=== PATIENT | male | born 1980 | race Caucasian/White ===

== ENCOUNTER 2020-08-16 14:12 | Emergency (ER) | payer MEDICARE ==
[~2020-08-16] VITALS: Ht 182.9 cm; Wt 95.5 kg
[~2020-08-16 14:12] MED LIST: HYDROCODON-ACET15 ML PO; PHENERGAN25 M1 PO; PREVACID30 MG PO; RIZATRIPTAN5 M1 PO; VALIUM5 MG PO
[2020-08-16 14:25] VITALS: BP 131/92; Ht 182.9 cm; Wt 95.5 kg
[2020-08-16] MEDS ORDERED: NORVASC5 MG PO (14:27)
[2020-08-16] MEDS ORDERED: PAXIL20 MG PO (14:28)
[2020-08-16] MEDS ORDERED: OMEPRAZOLE20 M1 PO (14:28)
== END 2020-08-16 16:05 | disposition home or self-care (01) ==
LOC: D.ER 14:12
DX: S61.211A Laceration without foreign body of left index finger without damage to nail, initial encounter (principal); I10 Essential (primary) hypertension; K21.9 Gastro-esophageal reflux disease without esophagitis; W20.8XXA Other cause of strike by thrown, projected or falling object, initial encounter; Y93.9 Activity, unspecified; Y92.9 Unspecified place or not applicable

== ENCOUNTER 2020-09-16 13:12 | Emergency (ER) | payer MEDICARE ==
[~2020-09-16] VITALS: Ht 185.4 cm; Wt 92.3 kg
[~2020-09-16 13:12] MED LIST changes: +NORVASC5 MG PO; +OMEPRAZOLE20 M1 PO; +PAXIL20 MG PO
[2020-09-16 13:30] VITALS: BP 122/80; Ht 185.4 cm; Wt 92.3 kg
[2020-09-16] MEDS ORDERED: FLUTICASONE PRO16 GM NASAL (14:42)
[2020-09-16] MEDS ORDERED: CLARITIN 10 MG10 MG PO (14:42)
== END 2020-09-16 15:03 | disposition home or self-care (01) ==
LOC: D.ER 13:12
DX: J30.9 Allergic rhinitis, unspecified (principal); J30.2 Other seasonal allergic rhinitis; I10 Essential (primary) hypertension; R51.9 Headache, unspecified

== ENCOUNTER 2020-10-16 05:40 | Observation (INO) | payer MEDICARE ==
[2020-10-14 09:48] LABS: BASOPHILS 1.2 % (0-2); EOSINOPHILS 2.2 % (0-7); HEMATOCRIT 47.4 % (42.0-54.0); HEMOGLOBIN 16.4 g/dL (13.5-17.5); LYMPHOCYTES 24.9 % (15-50); MCH 29.1 pg (26.0-34.0); MCHC 34.6 g/dL (31.0-37.0); MCV 83.9 fL (80.0-100.0); MEAN PLATELET VOLUME 8.4 fL (7.4-10.4); MONOCYTES 7.4 % (2-11); NEUTROPHILS 64.3 % (40-80); PLATELET COUNT 205 10x3/uL (130-400); RBC 5.66 10x6/uL (4.20-6.10); RDW 13.1 % (11.5-14.5); WBC 8.3 10x3/uL (4.8-10.8)
[2020-10-14 09:56] LABS: CALC OSMOLALITY 278 mosm/kg (275-300); CALCIUM 9.3 mg/dL (8.5-10.1); CARBON DIOXIDE 26.8 mmol/L (21.0-32.0); CHLORIDE - SERUM 103 mmol/L (98-107); GLUCOSE 108 mg/dL (74-106); POTASSIUM - SERUM 4.2 mmol/L (3.5-5.1); SODIUM 138 mmol/L (136-145); UREA NITROGEN 19 mg/dL (7-18); eGFR NON AFRICAN AMERICAN 88 mL/min (90-120)
[~2020-10-16] VITALS: Ht 185.4 cm; Wt 88.6 kg
[~2020-10-16 05:40] MED LIST changes: +CLARITIN 10 MG10 MG PO; +FLUTICASONE PRO16 GM NASAL; +MAXALT10 MG; +PHENERGAN25 M1; +VENTOLIN HFA [SP8 GM; +ZOFRAN4 MG
[2020-10-16] MEDS ORDERED: BUSPAR 15 MG TA15 MG PO (06:39)
[2020-10-16 07:04] VITALS: BP 125/94; BMI 25.7
--- NOTE | 2020-10-16 11:09 | NUR ---
OPA IN AIRWAY ON ADMIT
--- NOTE | 2020-10-16 15:17 | NUR ---
1350 - BLOOD PRESSURE ELEVATED BUT PATIENT HAVING ANXIETY AND PAIN. MEDICATED HIM WITH TYLENOL #3 ONE PO TO RELIEVE PAIN AND HELP REDUCE BP.
--- NOTE | 2020-10-16 15:19 | NUR ---
1515 - PATIENT UP TO BATHROOM TO TRY TO VOID. WAS SUCCESSFUL TO VOID A FEW DROPS SO WE DECIDED TO GET HIM UP TO SEE IF BEING UP WOULD HELP WITH VOIDING.
--- NOTE | 2020-10-16 16:04 | NUR ---
1600 - REPORT CALLED TO RICARDO ON MED/SURG. PATIENT BELONGINGS PACKED AND TRANSFERRED WITH PATIENT TO ROOM 2239 VIA WHEELCHAIR.
[2020-10-16 17:18] LABS: BASOPHILS 0.3 % (0-2); EOSINOPHILS 0 % (0-7); HEMATOCRIT 44.2 % (42.0-54.0); HEMOGLOBIN 15.3 g/dL (13.5-17.5); LYMPHOCYTES 4.5 % (15-50); MCH 28.8 pg (26.0-34.0); MCHC 34.5 g/dL (31.0-37.0); MCV 83.4 fL (80.0-100.0); MEAN PLATELET VOLUME 8.2 fL (7.4-10.4); MONOCYTES 2.2 % (2-11); PLATELET COUNT 193 10x3/uL (130-400); RDW 13.1 % (11.5-14.5); WBC 13.3 10x3/uL (4.8-10.8)
[2020-10-16 17:26] VITALS: BP 127/85; Ht 185.4 cm; Wt 88.6 kg
[2020-10-16 17:37] LABS: ALBUMIN 3.9 g/dL (3.4-5.0); ALKALINE PHOSPHATASE 57 U/L (30-120); ALT (SGPT) 85 U/L (10-68); BILIRUBIN - TOTAL 0.42 mg/dL (0.2-1.3); CALC OSMOLALITY 283 mosm/kg (275-300); CALCIUM 8.7 mg/dL (8.5-10.1); CARBON DIOXIDE 27.8 mmol/L (21.0-32.0); CHLORIDE - SERUM 103 mmol/L (98-107); CREATININE - SERUM 1.1 mg/dL (0.6-1.3); GLUCOSE 132 mg/dL (74-106); MAGNESIUM - SERUM 1.9 mg/dL (1.8-2.4); PHOSPHOROUS 2.3 mg/dL (2.5-4.9); POTASSIUM - SERUM 4.7 mmol/L (3.5-5.1); PROTEIN - SERUM 7.6 g/dL (6.4-8.2); SODIUM 141 mmol/L (136-145); UREA NITROGEN 15 mg/dL (7-18); eGFR NON AFRICAN AMERICAN 79 mL/min (90-120)
[2020-10-16 17:49] VITALS: BP 127/85
--- NOTE | 2020-10-16 19:30 | NUR ---
A&O X 4. PT VOIDING. RREPORTING SHOULDER PAIN, DENIES ADEQUATE PAIN RELIEF FROM TYLENOL3. ENCOURAGED AMBULATION. PT WALKING LAPS AROUND UNIT INDEPENDENTLY, CPOC.
[2020-10-16 20:00] VITALS: BP 144/69
--- NOTE | 2020-10-16 22:00 | NUR ---
PT AMBULATING IN KERN AGAIN, CPOC.
[2020-10-17] VITALS: BP 135/84
--- NOTE | 2020-10-17 02:30 | NUR ---
IV TO RIGHT WRIST OUT, CATH INTACT. 20G SITED TO RIGHT FOREARM, 1ST ATTEMPT, PATENT. REPORTING SOME RELIEF FROM ROAD ADVISOR AND [place]. CPOC.
--- NOTE | 2020-10-17 03:12 | NUR ---
REPORTS PASSING OF A LITTLE BIT OF GAS, BUT RATING SHOULDER/ABDOMINAL PAIN AT 10/10. REPORTS ALLERGY TO MORPHINE, DR SEYMOUR PAGED.
[2020-10-17 04:00] VITALS: BP 136/88
[2020-10-17 09:20] VITALS: BP 122/80
--- NOTE | 2020-10-17 10:44 | NUR ---
ASSESSMENT PER FLOW SHEET. PATIENT IS WITHOUT DISTRESS. STILL COMPLAINS OF PAIN TO ABDOMEN. INSTRUCTED PATIENT THAT IT IS GAS PAIN. PATIENT HAS DEENA UP IN ROOM,BUT HAS NOT AMB THIS AM.MONITOR FOR NEEDS
[2020-10-17 11:32] VITALS: BP 123/84
--- NOTE | 2020-10-17 12:13 | NUR ---
IV DCD WITH CATH TIP INTACT. DISCHARGE INSTRUCTIOS,STATES UNDERSTANDING.WAITING ON RIDE FOR TRANSPORT HOME.
--- NOTE | 2020-10-17 13:07 | NUR ---
LEFT UNIT VIA WHEELCHAIR FOR TRANSPORT HOME
--- NOTE | 2020-10-20 18:04 | MORECARE ---
CASE MANAGEMENT DISCHARGE SUMMARY PATIENT: YAMINI YANEZ UNIT: [id number] ADM DATE: 10/16/20 AGE: 39 : 80 SEX: M ROOM/BED: D.2239 AUTHOR: BECKY,DOC PHYSICIAN: REFERRING PHYSICIAN: CT SCRUGGS MD DATE OF SERVICE: 10/20/20 Case Management Discharge Planning Summary DCP REVIEW SUMMARY ANTICIPATED D/C DATE: EXPECTED LOS : CASE STATUS: DCP Not started INITIAL REVIEW: 10/16/2020 INITIAL REVIEWER: Sofie Reddy FINAL DISCHARGE DISPOSITION: : FINAL REVIEWER: FINAL REVIEW DATE: DCP Focus Questions & Answers QUESTION: ANSWER : PATIENT: YAMINI YANEZ ENCOUNTER: [id number] MEDICAL RECORD#: [id number] ADMISSION DATE: 10/16/2020 DISCHARGE DATE: 10/17/2020 ATTENDING MD: LYRIC: AGE: 39 MARITAL STATUS: M DC PLAN ID: [id number] FACILITY: [facility] PRINTED ON: 10/20/20 18:04 CT All edits/amendments must be made on the electronic document DICTATION DATE: 10/20/201803 [employer] BUSINESS SEGMENT LEADER: DM 10/20/201803 RPT#: [id number] DC DATE:10/17/20 STATUS: DIS IN [facility] [address] [place] [address] END OF REPORT
== END 2020-10-17 13:08 | disposition home or self-care (01) ==
LOC: D.OPS 05:40 → D.MS 16:03 → D.OPS 20:12 → D.MS 20:13 → OBSVTIME 20:13 → D.MS 20:13
PROVIDERS: Anesthesiology; ADMIT Surgery; ATTEND Surgery
DX: K44.9 Diaphragmatic hernia without obstruction or gangrene (principal); K25.9 Gastric ulcer, unspecified as acute or chronic, without hemorrhage or perforation; K21.9 Gastro-esophageal reflux disease without esophagitis; K22.2 Esophageal obstruction

== ENCOUNTER 2020-10-20 13:11 | Inpatient (IN) | payer MEDICARE ==
[~2020-10-20] VITALS: Ht 185.4 cm; Wt 87.5 kg
[~2020-10-20 13:11] MED LIST changes: +BUSPAR 15 MG TA15 MG PO
[2020-10-20 14:09] LABS: BASOPHILS 0.2 % (0-2); EOSINOPHILS 0.3 % (0-7); HEMATOCRIT 42.7 % (42.0-54.0); HEMOGLOBIN 14.7 g/dL (13.5-17.5); LYMPHOCYTES 5.3 % (15-50); MCH 28.6 pg (26.0-34.0); MCHC 34.4 g/dL (31.0-37.0); MCV 83.2 fL (80.0-100.0); MEAN PLATELET VOLUME 8.1 fL (7.4-10.4); MONOCYTES 6.4 % (2-11); NEUTROPHILS 87.8 % (40-80); PLATELET COUNT 203 10x3/uL (130-400); RBC 5.14 10x6/uL (4.20-6.10); RDW 12.7 % (11.5-14.5); WBC 15.9 10x3/uL (4.8-10.8)
[2020-10-20 14:19] LABS: BACTERIA FEW HPF (<MOD); BILIRUBIN NEGATIVE (NEGATIVE); KETONE 3+ mg/dL (< 1+); NITRITE NEGATIVE (NEGATIVE); PH 6.5 (5.0-8.0); SQUAMOUS EPITHELIAL <1 HPF (0-4); UROBILINOGEN NORMAL mg/dL (< 2); WHITE CELLS - URINE 3 HPF (0-1)
[2020-10-20 14:24] LABS: CALC OSMOLALITY 281 mosm/kg (275-300); CALCIUM 9.1 mg/dL (8.5-10.1); CARBON DIOXIDE 25.4 mmol/L (21.0-32.0); CHLORIDE - SERUM 104 mmol/L (98-107); CREATININE - SERUM 0.9 mg/dL (0.6-1.3); GLUCOSE 125 mg/dL (74-106); POTASSIUM - SERUM 4.1 mmol/L (3.5-5.1); SODIUM 140 mmol/L (136-145); UREA NITROGEN 17 mg/dL (7-18); eGFR NON AFRICAN AMERICAN > 90 mL/min (90-120)
[2020-10-20 14:28] LABS: UDS - AMPHET NEGATIVE QUAL (NEGATIVE); UDS - BARB NEGATIVE QUAL (NEGATIVE); UDS - BENZO POSITIVE QUAL (NEGATIVE); UDS - COCAINE NEGATIVE QUAL (NEGATIVE); UDS - OPIATE POSITIVE QUAL (NEGATIVE); UDS - PCP NEGATIVE QUAL (NEGATIVE); UDS - THC POSITIVE QUAL (NEGATIVE)
[2020-10-20 14:29] LABS: ALBUMIN 3.6 g/dL (3.4-5.0); ALKALINE PHOSPHATASE 73 U/L (30-120); ALT (SGPT) 47 U/L (10-68); BILIRUBIN - TOTAL 0.65 mg/dL (0.2-1.3); MAGNESIUM - SERUM 2.3 mg/dL (1.8-2.4); PROTEIN - SERUM 7.7 g/dL (6.4-8.2)
[2020-10-20 14:39] LABS: ALCOHOL - BLOOD (MEDICAL) < 3.0 mg/dL (0.0-10.0)
[2020-10-20 14:51] VITALS: BP 122/84
[2020-10-20 16:02] VITALS: BP 119/68
--- NOTE | 2020-10-20 20:18 | NUR ---
RECEIVED TO ROOM. ALERT ORIENTED. RESP UNALBORED. 4 LAP SITE DRESSINGS INTACT TO ABD INTACT WITHOUT DRAINAGE NOTED. IV TO LAC INTACT WIHTOUT REDNESS OR EDEMA NOTED. CL IN REACH
[2020-10-20 22:28] VITALS: BMI 25.5
[2020-10-21 05:57] LABS: BASOPHILS 0.3 % (0-2); EOSINOPHILS 2.7 % (0-7); HEMATOCRIT 38.3 % (42.0-54.0); HEMOGLOBIN 13.2 g/dL (13.5-17.5); LYMPHOCYTES 20.2 % (15-50); MCH 29.1 pg (26.0-34.0); MCHC 34.5 g/dL (31.0-37.0); MCV 84.4 fL (80.0-100.0); MEAN PLATELET VOLUME 8.4 fL (7.4-10.4); MONOCYTES 7.1 % (2-11); NEUTROPHILS 69.7 % (40-80); PLATELET COUNT 201 10x3/uL (130-400); RBC 4.54 10x6/uL (4.20-6.10); RDW 12.6 % (11.5-14.5)
[2020-10-21 05:58] LABS: ALBUMIN 3.1 g/dL (3.4-5.0); ALKALINE PHOSPHATASE 69 U/L (30-120); BILIRUBIN - TOTAL 0.45 mg/dL (0.2-1.3); CALC OSMOLALITY 279 mosm/kg (275-300); CALCIUM 8.4 mg/dL (8.5-10.1); CARBON DIOXIDE 25.1 mmol/L (21.0-32.0); CHLORIDE - SERUM 106 mmol/L (98-107); CREATININE - SERUM 0.9 mg/dL (0.6-1.3); GLUCOSE 94 mg/dL (74-106); MAGNESIUM - SERUM 2.6 mg/dL (1.8-2.4); PHOSPHOROUS 3.9 mg/dL (2.5-4.9); POTASSIUM - SERUM 3.8 mmol/L (3.5-5.1); PROTEIN - SERUM 6.9 g/dL (6.4-8.2); SODIUM 140 mmol/L (136-145); THYROID STIMULATING HORMONE 0.66 uIU/mL (0.36-3.74); UREA NITROGEN 15 mg/dL (7-18); eGFR NON AFRICAN AMERICAN > 90 mL/min (90-120)
[2020-10-21 06:07] LABS: ALT (SGPT) 35 U/L (10-68)
[2020-10-21 06:37] LABS: WBC 9.9 10x3/uL (4.8-10.8)
[2020-10-21 07:28] LABS: APTT 31.5 SECONDS (22.8-39.4); INR 1.23 (0.85-1.17); PROTIME 14.4 SECONDS (11.6-15.0)
--- NOTE | 2020-10-21 07:32 | NUR ---
RECIEVED BEDSIDE REPORT. BED LOW POSITION, CALL LIGHT IN REACH. IN BED ASLEEP. DENIES NEEDS, WILL CONTINUE TO MONITOR.
[2020-10-21 08:46] VITALS: Ht 185.4 cm; Wt 87.5 kg
[2020-10-21 10:27] VITALS: BP 150/99
[2020-10-21 13:00] VITALS: BP 171/97
[2020-10-21 17:00] VITALS: BP 156/91
[2020-10-21 20:00] VITALS: BP 172/96
[2020-10-22] VITALS: BP 119/74
[2020-10-22 04:00] VITALS: BP 123/84
[2020-10-22 06:10] LABS: BASOPHILS 0.4 % (0-2); EOSINOPHILS 4.3 % (0-7); HEMATOCRIT 39.1 % (42.0-54.0); HEMOGLOBIN 13.5 g/dL (13.5-17.5); LYMPHOCYTES 26.3 % (15-50); MCH 29.1 pg (26.0-34.0); MCHC 34.5 g/dL (31.0-37.0); MCV 84.2 fL (80.0-100.0); MEAN PLATELET VOLUME 8.3 fL (7.4-10.4); PLATELET COUNT 229 10x3/uL (130-400); RBC 4.65 10x6/uL (4.20-6.10); RDW 12.8 % (11.5-14.5); WBC 8.5 10x3/uL (4.8-10.8)
[2020-10-22 06:27] LABS: ALBUMIN 3.3 g/dL (3.4-5.0); ALKALINE PHOSPHATASE 62 U/L (30-120); ALT (SGPT) 37 U/L (10-68); BILIRUBIN - TOTAL 0.38 mg/dL (0.2-1.3); CALCIUM 8.5 mg/dL (8.5-10.1); CHLORIDE - SERUM 105 mmol/L (98-107); CREATININE - SERUM 0.8 mg/dL (0.6-1.3); GLUCOSE 100 mg/dL (74-106); POTASSIUM - SERUM 3.8 mmol/L (3.5-5.1); PROTEIN - SERUM 7.1 g/dL (6.4-8.2); SODIUM 141 mmol/L (136-145); eGFR NON AFRICAN AMERICAN > 90 mL/min (90-120)
[2020-10-22 06:28] LABS: CALC OSMOLALITY 279 mosm/kg (275-300); UREA NITROGEN 11 mg/dL (7-18)
--- NOTE | 2020-10-22 07:25 | NUR ---
RECIEVED BEDSIDE REPORT. BED LOW POSITION, CALL LIGHT IN REACH. IN BED SLEEPING. AROUSES TO VOICE. FREE FROM SIGNS OF DISTRESS. WILL CONTINUE TO MONITOR.
[2020-10-22 08:54] VITALS: BP 148/77
[2020-10-22] MEDS ORDERED: KEPPRA1000 MG PO (09:45)
--- NOTE | 2020-10-22 10:27 | MORECARE ---
CASE MANAGEMENT DISCHARGE SUMMARY PATIENT: YAMINI YANEZ UNIT: [id number] ADM DATE: 10/20/20 AGE: 39 : 80 SEX: M ROOM/BED: D.2206 AUTHOR: BECKY,DOC PHYSICIAN: REFERRING PHYSICIAN: CT SCRUGGS MD DATE OF SERVICE: 10/22/20 Case Management Discharge Planning Summary COMMENTS ENTERED DATE: 10/22/20 10:21 CT COMMENT TYPE: Discharge Planning REVIEWER: Yue Morin CM met with patient to complete initial dc planning assessment. CM educated patient on the CM role and verbal consent given by patient to complete assessment. Patient is currently living at home with his and step children, but will not be staying there much longer. At discharge patient plans to return home where is stuff is and stay in a different home ( landlords empty home) till he can get things situated and feels this is a safe discharge. He stated that his marriage is not a loving marriage anymore, and he thinks it is time to part ways. He currently see's a counselor and is going to call and try to get in with her. He feels safe going to his home though. He will need a taxi to get home and CM will cover that. He stated that his only 2 options for transportation can not get him today. He states he is independent with his care. His truck in being worked on at the moment. He has running water and electricity at home. CM discussed availability of home health, rehab services, and medical equipment. Patient denied known discharge needs at this time. CM will continue to follow and will assist as needed with dc plans/needs. DCP REVIEW SUMMARY ANTICIPATED D/C DATE: EXPECTED LOS : CASE STATUS: DCP Initiated INITIAL REVIEW: 10/20/2020 INITIAL REVIEWER: Yue Morin FINAL DISCHARGE DISPOSITION: : FINAL REVIEWER: FINAL REVIEW DATE: DCP Focus Questions & Answers QUESTION: ANSWER : PATIENT: YAMINI YANEZ ENCOUNTER: [id number] MEDICAL RECORD#: [id number] ADMISSION DATE: 10/20/2020 DISCHARGE DATE: ATTENDING MD: : AGE: 39 MARITAL STATUS: M DC PLAN ID: [id number] FACILITY: [facility] PRINTED ON: 10/22/20 10:27 CT All edits/amendments must be made on the electronic document DICTATION DATE: 10/22/20 102 SAMPLE CHECKER: UMM 10/22/20 1027 RPT#: [id number] DC DATE: STATUS: ADM IN [facility] [address] [place] [address] END OF REPORT
--- NOTE | 2020-10-22 10:39 | MORECARE ---
CASE MANAGEMENT DISCHARGE SUMMARY PATIENT: YAMINI YANEZ UNIT: [id number] ADM DATE: 10/20/20 AGE: 39 : 80 SEX: M ROOM/BED: D.2206 AUTHOR: BECKY,DOC PHYSICIAN: REFERRING PHYSICIAN: CT SCRUGGS MD DATE OF SERVICE: 10/22/20 Case Management Discharge Planning Summary COMMENTS ENTERED DATE: 10/22/20 10:30 CT COMMENT TYPE: Discharge Planning REVIEWER: Yue Morin CM WILL PROVIDE TAXI FOR PATIENT THE COST WILL BE 20.00 NURSE WILL CALL TAXI WHEN READY FOR TRANSPORTATION ENTERED DATE: 10/22/20 10:21 CT COMMENT TYPE: Discharge Planning REVIEWER: Yue Morin CM met with patient to complete initial dc planning assessment. CM educated patient on the CM role and verbal consent given by patient to complete assessment. Patient is currently living at home with his and step children, but will not be staying there much longer. At discharge patient plans to return home where is stuff is and stay in a different home ( landlords empty home) till he can get things situated and feels this is a safe discharge. He stated that his marriage is not a loving marriage anymore, and he thinks it is time to part ways. He currently see's a counselor and is going to call and try to get in with her. He feels safe going to his home though. He will need a taxi to get home and CM will cover that. He stated that his only 2 options for transportation can not get him today. He states he is independent with his care. His truck in being worked on at the moment. He has running water and electricity at home. CM discussed availability of home health, rehab services, and medical equipment. Patient denied known discharge needs at this time. CM will continue to follow and will assist as needed with dc plans/needs. DCP REVIEW SUMMARY ANTICIPATED D/C DATE: EXPECTED LOS : CASE STATUS: DCP Initiated INITIAL REVIEW: 10/20/2020 INITIAL REVIEWER: Yue Morin FINAL DISCHARGE DISPOSITION: : FINAL REVIEWER: FINAL REVIEW DATE: DCP Focus Questions & Answers QUESTION: ANSWER : PATIENT: YAMINI YANEZ ENCOUNTER: [id number] MEDICAL RECORD#: [id number] ADMISSION DATE: 10/20/2020 DISCHARGE DATE: ATTENDING MD: LYRIC: AGE: 39 MARITAL STATUS: M DC PLAN ID: [id number] FACILITY: [facility] PRINTED ON: 10/22/20 10:39 CT All edits/amendments must be made on the electronic document DICTATION DATE: 10/22/20 103 SWITCHBOARD OPERATOR SUPERVISOR: UMM 10/22/20 1039 RPT#: [id number] DC DATE: STATUS: ADM IN [facility] [address] [place] [address] END OF REPORT
--- NOTE | 2020-10-22 11:18 | NUR ---
DISCHARGE PAPERS COMPLETE. IV CATH REMOVED, CATH TIP INTACT. DENIES FURTHER QUESTIONS. GETHERED BELONGINGS. LEFT UNIT VIA WHEELCHAIR TO TAKE TAXI HOME.
--- NOTE | 2020-10-22 11:29 | MORECARE ---
CASE MANAGEMENT DISCHARGE SUMMARY PATIENT: YAMINI YANEZ UNIT: [id number] ADM DATE: 10/20/20 AGE: 39 : 80 SEX: M ROOM/BED: D.2206 AUTHOR: BECKY,DOC PHYSICIAN: REFERRING PHYSICIAN: CT SCRUGGS MD DATE OF SERVICE: 10/22/20 Case Management Discharge Planning Summary COMMENTS ENTERED DATE: 10/22/20 10:30 CT COMMENT TYPE: Discharge Planning REVIEWER: Yue Morin CM WILL PROVIDE TAXI FOR PATIENT THE COST WILL BE 20.00 NURSE WILL CALL TAXI WHEN READY FOR TRANSPORTATION ENTERED DATE: 10/22/20 10:21 CT COMMENT TYPE: Discharge Planning REVIEWER: Yue Morin CM met with patient to complete initial dc planning assessment. CM educated patient on the CM role and verbal consent given by patient to complete assessment. Patient is currently living at home with his and step children, but will not be staying there much longer. At discharge patient plans to return home where is stuff is and stay in a different home ( landlords empty home) till he can get things situated and feels this is a safe discharge. He stated that his marriage is not a loving marriage anymore, and he thinks it is time to part ways. He currently see's a counselor and is going to call and try to get in with her. He feels safe going to his home though. He will need a taxi to get home and CM will cover that. He stated that his only 2 options for transportation can not get him today. He states he is independent with his care. His truck in being worked on at the moment. He has running water and electricity at home. CM discussed availability of home health, rehab services, and medical equipment. Patient denied known discharge needs at this time. CM will continue to follow and will assist as needed with dc plans/needs. DCP REVIEW SUMMARY ANTICIPATED D/C DATE: EXPECTED LOS : CASE STATUS: DCP Initiated INITIAL REVIEW: 10/20/2020 INITIAL REVIEWER: Yue Morin FINAL DISCHARGE DISPOSITION: : FINAL REVIEWER: FINAL REVIEW DATE: DCP Focus Questions & Answers QUESTION: ANSWER : PATIENT: YAMINI YANEZ ENCOUNTER: [id number] MEDICAL RECORD#: [id number] ADMISSION DATE: 10/20/2020 DISCHARGE DATE: 10/22/2020 ATTENDING MD: LYRIC: AGE: 39 MARITAL STATUS: M DC PLAN ID: [id number] FACILITY: [facility] PRINTED ON: 10/22/20 11:29 CT All edits/amendments must be made on the electronic document DICTATION DATE: 10/22/20 112 GEAR CUTTER: UMM 10/22/20 112 RPT#: [id number] DC DATE:10/22/20 STATUS: DIS IN [facility] [address] [place] [address] END OF REPORT
--- NOTE | 2020-10-23 08:47 | MORECARE ---
CASE MANAGEMENT DISCHARGE SUMMARY PATIENT: YAMINI YANEZ UNIT: [id number] ADM DATE: 10/20/20 AGE: 39 : 80 SEX: M ROOM/BED: D.2206 AUTHOR: BECKY,DOC PHYSICIAN: REFERRING PHYSICIAN: CT SCRUGGS MD DATE OF SERVICE: 10/23/20 Case Management Discharge Planning Summary COMMENTS ENTERED DATE: 10/22/20 10:30 CT COMMENT TYPE: Discharge Planning REVIEWER: Yue Morin CM WILL PROVIDE TAXI FOR PATIENT THE COST WILL BE 20.00 NURSE WILL CALL TAXI WHEN READY FOR TRANSPORTATION ENTERED DATE: 10/22/20 10:21 CT COMMENT TYPE: Discharge Planning REVIEWER: Yue Morin CM met with patient to complete initial dc planning assessment. CM educated patient on the CM role and verbal consent given by patient to complete assessment. Patient is currently living at home with his and step children, but will not be staying there much longer. At discharge patient plans to return home where is stuff is and stay in a different home ( landlords empty home) till he can get things situated and feels this is a safe discharge. He stated that his marriage is not a loving marriage anymore, and he thinks it is time to part ways. He currently see's a counselor and is going to call and try to get in with her. He feels safe going to his home though. He will need a taxi to get home and CM will cover that. He stated that his only 2 options for transportation can not get him today. He states he is independent with his care. His truck in being worked on at the moment. He has running water and electricity at home. CM discussed availability of home health, rehab services, and medical equipment. Patient denied known discharge needs at this time. CM will continue to follow and will assist as needed with dc plans/needs. DCP REVIEW SUMMARY ANTICIPATED D/C DATE: EXPECTED LOS : 0 CASE STATUS: DCP Complete INITIAL REVIEW: 10/20/2020 INITIAL REVIEWER: Yue Moirn FINAL DISCHARGE DISPOSITION: 01 : Home or Self Care (Routine Discharge) FINAL REVIEWER: Yue Morin FINAL REVIEW DATE: 10/23/2020 DCP Focus Questions & Answers QUESTION: ANSWER : PATIENT: YAMINI YANEZ ENCOUNTER: [id number] MEDICAL RECORD#: [id number] ADMISSION DATE: 10/20/2020 DISCHARGE DATE: 10/22/2020 ATTENDING MD: LYRIC: AGE: 39 MARITAL STATUS: M DC PLAN ID: [id number] FACILITY: [facility] PRINTED ON: 10/23/20 8:47 CT All edits/amendments must be made on the electronic document DICTATION DATE: 10/23/20846 MEAT COUNTER WORKER: UMM 10/23/20 0847 RPT#: [id number] DC DATE:10/22/20 STATUS: DIS IN [facility] [address] [place] [address] END OF REPORT
== END 2020-10-22 11:19 | disposition home or self-care (01) | DRG 101 ==
LOC: D.ER 13:11 → D.MS 15:56
PROVIDERS: Emergency Medicine; Family Medicine; ADMIT Surgery; ATTEND Surgery
DX: R56.9 Unspecified convulsions (principal); J45.909 Unspecified asthma, uncomplicated; K21.9 Gastro-esophageal reflux disease without esophagitis; K58.9 Irritable bowel syndrome, unspecified; M19.90 Unspecified osteoarthritis, unspecified site; M06.9 Rheumatoid arthritis, unspecified; F32.9 Major depressive disorder, single episode, unspecified; Z87.820 Personal history of traumatic brain injury